=== PATIENT | male | born 1970 | race Two or more races ===

== ENCOUNTER 2019-11-26 00:45 | Emergency (ER) | payer OTHER, MEDICAID ==
[~2019-11-26] VITALS: Ht 175.3 cm; Wt 100.0 kg
[~2019-11-26 00:45] MED LIST: OXYC-302 PO
--- NOTE | 2019-11-26 00:50 | NUR ---
BIBA for ETOH, ems reports on scene pt was found to have possibly passed out, initially AAOx2 and became more responsive en route. Upon arrival to ED, pt states he [place] outside of [place] to sit down on sidewalk and then "fell asleep", denies pain or hitting head
--- NOTE | 2019-11-26 01:00 | NUR ---
PT PROVIDED WITH WATER AND CRACKERS PER REQUEST, PT RESTING COMFORTABLY IN GURNEY WATCHING TV, PT STATES HE'D "LIKE TO GO HOME." PLAN OF CARE DISCUSSED WITH PT AND PT AGREEABLE TO STAY AND RECEIVE BLOOD WORK.
[2019-11-26 01:10] LABS: BASOPHILS # (AUTO) 0.01 x10^3/uL (0-0.1); BASOPHILS % (AUTO) 0 % (0-1); EOSINOPHILS # (AUTO) 0.05 x10^3/uL (0-0.4); EOSINOPHILS % (AUTO) 1 % (1-7); LYMPHOCYTES # (AUTO) 0.29 x10^3/uL (1-3.4); LYMPHOCYTES % (AUTO) 7 % (22-44); MD NO; MEAN CORPUSCULAR HGB CONC 33.5 g/dL (33.2-36.2); MEAN CORPUSCULAR VOLUME 95.4 fL (81-97); MEAN PLATELET VOLUME 8.2 fL (7.4-10.4); MONOCYTES # (AUTO) 0.44 x10^3/uL (0.2-0.8); MONOCYTES % (AUTO) 10 % (2-9); NEUTROPHILS % (AUTO) 82 % (42-75); PLATELET COUNT 155 x10^3/uL (130-400); RED BLOOD COUNT 4.91 x10^6/uL (4.38-5.82); RED CELL DISTRIBUTION WIDTH 17.1 % (9.4-14.8)
[2019-11-26 01:21] LABS: ALANINE AMINOTRANSFERASE 71 U/L (12-78); ALBUMIN 3.6 g/dL (3.4-5.0); ANION GAP 18 mmol/L (5-15); CALCIUM 8.5 mg/dL (8.5-10.1); CHLORIDE 95 mmol/L (98-107); CREATININE 1.07 mg/dL (0.7-1.3)
[2019-11-26 01:23] LABS: ALKALINE PHOSPHATASE 149 U/L (45-117); BILIRUBIN,TOTAL 2.2 mg/dL (0.2-1.0); TOTAL PROTEIN 7.5 g/dL (6.4-8.2)
[2019-11-26 03:10] VITALS: BP 144/88
[2019-11-26 03:55] LABS: MICROSCOPIC INDICATED
--- NOTE | 2019-11-26 04:28 | NUR ---
Pt DCed at this time, VSS, education provided on new rx and f/u care. Pt verbalized understanding. Pt states he "needs a moment before leaving", all of pts clothes on floor and pt changed into gown after using restroom
== END 2019-11-26 05:27 ==
LOC: EDBD 00:45 → ED 02:26 → EDBD 02:26 → ED 05:27
DX: F10.129 Alcohol abuse with intoxication, unspecified (principal); N30.00 Acute cystitis without hematuria; I10 Essential (primary) hypertension; F17.210 Nicotine dependence, cigarettes, uncomplicated; Z72.9 Problem related to lifestyle, unspecified; Y90.0 Blood alcohol level of less than 20 mg/100 ml
CPT/HCPCS: 36415; 80053; 80307; 81001; 85025; 87086; 99283; 99406

== ENCOUNTER 2019-11-26 07:19 | Emergency (ER) | payer MEDICAID, OTHER ==
[~2019-11-26] VITALS: Ht 182.9 cm; Wt 93.6 kg
--- NOTE | 2019-11-26 07:38 | NUR ---
Pt presents to ed c/o witness sz by bystanders. postictal for remsa on scene. A+ox4 and neurologically intact. No oral trauma and incontinence noted. States no hx of sz. C/o heavy etoh abuse and "i am done w/ that stuff." States drank "some four mao's this morning". No sz to be found at this time. Blankets placed on bed in stead of sz pads. All monitoring applied. IV established. Pa at bedside for initial assessment. Addendum: 11/26/19 at 0747 by TRISTON Pt presents to ed c/o witness sz by bystanders. postictal for remsa on scene. A+ox4 and neurologically intact. No oral trauma and incontinence noted. States no hx of sz. C/o heavy etoh abuse and "i am done w/ that stuff." States drank "some four mao's this morning". No sz pads to be found at this time. Blankets placed on bed in stead of sz pads. All monitoring applied. IV established. Pa at bedside for initial assessment.
--- NOTE | 2019-11-26 07:40 | NUR ---
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
--- NOTE | 2019-11-26 07:48 | NUR ---
Pt to ct.
[2019-11-26 07:55] LABS: BASOPHILS # (AUTO) 0.01 x10^3/uL (0-0.1); BASOPHILS % (AUTO) 0 % (0-1); EOSINOPHILS % (AUTO) 3 % (1-7); LYMPHOCYTES # (AUTO) 0.36 x10^3/uL (1-3.4); LYMPHOCYTES % (AUTO) 8 % (22-44); MD NO; MEAN CORPUSCULAR HEMOGLOBIN 31.7 pg (27.5-34.5); MEAN CORPUSCULAR HGB CONC 32.6 g/dL (33.2-36.2); MEAN CORPUSCULAR VOLUME 97.2 fL (81-97); MONOCYTES # (AUTO) 0.53 x10^3/uL (0.2-0.8); MONOCYTES % (AUTO) 13 % (2-9); NEUTROPHILS # (AUTO) 3.23 x10^3/uL (1.8-6.8); NEUTROPHILS % (AUTO) 76 % (42-75); PLATELET COUNT 163 x10^3/uL (130-400); RED BLOOD COUNT 4.75 x10^6/uL (4.38-5.82); RED CELL DISTRIBUTION WIDTH 17.4 % (9.4-14.8)
[2019-11-26] MEDS ORDERED: SODIUM CHLORIDE 0.9% 1,000ML IVBOLUS ONE (08:00)
[2019-11-26 08:03] LABS: ALBUMIN 3.4 g/dL (3.4-5.0); ANION GAP 11 mmol/L (5-15); CALCIUM 8.5 mg/dL (8.5-10.1); CHLORIDE 95 mmol/L (98-107); CREATININE 1.16 mg/dL (0.7-1.3)
[2019-11-26 08:22] VITALS: BP 135/84
--- NOTE | 2019-11-26 08:22 | NUR ---
Pt back from ct and resting comfortably on gurney. NADN. Sz precautions remain in place. VSS.
--- NOTE | 2019-11-26 08:48 | NUR ---
Pt bedside report to Brooke walters.
--- NOTE | 2019-11-26 08:50 | NUR ---
RECEIVED REPORT FROM URMILA HUNTER MD EXAMINING PT
== END 2019-11-26 09:44 | disposition home or self-care (01) ==
LOC: MERGE 07:19 → ED 07:48
DX: F10.239 Alcohol dependence with withdrawal, unspecified (principal); R56.9 Unspecified convulsions; R55 Syncope and collapse; I10 Essential (primary) hypertension; R00.0 Tachycardia, unspecified; Y90.0 Blood alcohol level of less than 20 mg/100 ml
CPT/HCPCS: 36415; 70450; 80048; 80307; 82040; 85025; 93005; 96360; 99285; J7030